=== PATIENT | male | born 1975 | race Caucasian/White ===

== ENCOUNTER 2017-01-04 12:37 | Inpatient (IN) | payer OTHER ==
[2017-01-04 17:11] VITALS: BMI 34.2
--- NOTE | 2017-01-04 18:49 | HP ---
COWS - Scale Resting Pulse: 0= [place] 80 or Below Sweatin= Chills/Flushing Restless Observation: 1= Difficult to Sit Still Pupil Size: 0= Normal to Room Light Bone or Joint Aches: 2= Severe Diffuse Aches Runny Nose/ Eye Tearin= Runny Nose/Eyes GI Upset > 30mins: 1= Stomach Cramp Tremor Observation: 2= Slight Tremor Visible Yawning Observation: 0= None Anxiety or Irritability: 2=Irritable/Anxious Goose Flesh Skin: 3=Piloerection COWS Score: 14 Admission ROS S - HPI Chief Complaint: WITHDRAWAL SX Allergies/Adverse Reactions: Allergies Allergy/AdvReac Type Severity Reaction Status Date / Time No Known Allergies Allergy Verified 01/04/17 17:41 History of Present Illness: 41 YEARS OLD MALE WITH LONG HISTORY OF OPIATE NICOTINE DEPENDENCE, HAS HYPERTENSION HYPERLIPIDEMIA DIABETES II GERD DEPRESSION S/P CARDIAC STENTS 2014 IS ADMITTED TO DETOX Exam Limitations: No Limitations - Ebola screening Have you traveled outside of the country in the last 21 days: No Have you had contact with anyone from an Ebola affected area: No Have you been sick,other than usual withdrawal symptoms: No Do you have a fever: No - Review of Systems Constitutional: Chills, Changes in sleep, Weight Stable EENT: reports: No Symptoms Reported Respiratory: reports: No Symptoms reported Cardiac: reports: No Symptoms Reported GI: reports: Nausea, Poor Fluid Intake, Indigestion, Abdominal cramping Musculoskeletal: reports: Back Pain Integumentary: reports: No Symptoms Reported Neuro: reports: Tremors Endocrine: reports: No Symptoms Reported Hematology: reports: No Symptoms Reported Psychiatric: reports: Judgement Intact, Orientated x3, Depressed Other Systems: Reviewed and Negative Patient History - Patient Medical History Hx Anemia: No Hx Asthma: No Hx Chronic Obstructive Pulmonary Disease (COPD): No Hx Cancer: No Hx Cardiac Disorders: No Hx Congestive Heart Failure: No Hx Hypertension: Yes Hx Hypercholesterolemia: Yes Hx Pacemaker: No HX Cerebrovascular Accident: No Hx Seizures: No Hx Dementia: No Hx Diabetes: Yes Hx Gastrointestinal Disorders: No Hx Liver Disease: No Hx Genitourinary Disorders: No Hx Sexually Transmitted Disorders: No Hx Renal Disease (ESRD): No Hx Thyroid Disease: No Hx Human Immunodeficiency Virus (HIV): No Hx Hepatitis C: No Hx Depression: Yes Hx Suicide Attempt: No Hx Bipolar Disorder: No Hx Schizophrenia: No - Patient Surgical History Past Surgical History: Yes Hx Neurologic Surgery: No Hx Cataract Extraction: No Hx Cardiac Surgery: Yes (2 stents 04/2015) Hx Lung Surgery: No Hx Breast Surgery: No Hx Breast Biopsy: No Hx Abdominal Surgery: No Hx Appendectomy: No Hx Cholecystectomy: No Hx Genitourinary Surgery: No Hx Orthopedic Surgery: No Anesthesia Reaction: No - PPD History Previous Implant?: Yes Documented Results: Negative w/o proof Implanted On Prior [facility] Admission?: No PPD to be Administered?: Yes - Smoking Cessation Smoking history: Current every day smoker Have you smoked in the past 12 months: Yes Aproximately how many cigarettes per day: 20 Cigars Per Day: 0 Hx Chewing Tobacco Use: No Initiated information on smoking cessation: Yes 'Breaking Loose' booklet given: 01/04/17 - Substance & Tx. History Hx Alcohol Use: No Hx Substance Use: Yes Substance Use Type: Opiates Hx Substance Use Treatment: Yes - Substances Abused Heroin Route: Inhalation Frequency: Daily Amount used: 7 bags Age of first use: 36 Date of Last Use: 01/03/17 Marijuana/Hashish Route: Smoking Frequency: 1-2 times per week Amount used: 1 joint Age of first use: 14 Date of Last Use: 01/03/17 Family Disease History - Family Disease History Family Disease History: Diabetes: Grandparent, Father, Mother, Heart Disease: Grandparent, Father, Mother Admission Physical Exam BHS - Vital Signs Vital Signs: Vital Signs - 24 hr 01/04/17 17:09 Temperature 97.4 F L Pulse Rate 77 Respiratory 18 Rate Blood Pressure 113/68 - Physical General Appearance: Yes: Appropriately Dressed, Mild Distress, Obese, Tremorous , Irritable, Sweating, Anxious HEENTM: Yes: Hearing grossly Normal, Normal ENT Inspection, Normocephalic, Normal Voice Respiratory: Yes: Chest Non-Tender, Lungs Clear, Normal Breath Sounds, No Respiratory Distress, No Accessory Muscle Use Neck: Yes: Trachea in good position Breast: Yes: Breasts Symetrical Cardiology: Yes: Regular Rhythm, Regular Rate, S1, S2 Abdominal: Yes: Non Tender, Soft Genitourinary: Yes: Within Normal Limits Back: Yes: Normal Inspection Musculoskeletal: Yes: full range of Motion, Gait Steady, Back pain Extremities: Yes: Normal Range of Motion, Non-Tender, Tremors Neurological: Yes: Fully Oriented, Alert, Motor Strength 5/5, Normal Response, Depressed Affect Integumentary: Yes: Warm Lymphatic: Yes: Within Normal Limits - Diagnostic (1) Opioid dependence with withdrawal Current Visit: Yes Status: Acute (2) Depression (emotion) Current Visit: Yes Status: Suspected Qualifiers: Depression Type: dysthymia Qualified Code(s): F34.1 - Dysthymic disorder (3) Hypertension Current Visit: Yes Status: Acute Qualifiers: Hypertension type: essential hypertension Qualified Code(s): I10 - Essential (primary) hypertension (4) Hypercholesterolemia Current Visit: Yes Status: Acute (5) Diabetes mellitus type II, controlled Current Visit: Yes Status: Acute Qualifiers: Diabetes mellitus complication status: without complication Diabetes mellitus adjunct faculty for medical terminology insulin use: without senior care use Qualified Code(s): E11.9 - Type 2 diabetes mellitus without complications (6) GERD (gastroesophageal reflux disease) Current Visit: Yes Status: Acute Qualifiers: Esophagitis presence: without esophagitis Qualified Code(s): K21.9 - Gastro-esophageal reflux disease without esophagitis (7) Nicotine dependence Current Visit: Yes Status: Acute Qualifiers: Nicotine product type: cigarettes Substance use status: in withdrawal Qualified Code(s): F17.213 - Nicotine dependence, cigarettes, with withdrawal (8) History of heart artery stent Current Visit: Yes Status: Resolved Cleared for Admission [facility] - Detox or Rehab [facility] Level of Care: Medically Managed Detox Regimen/Protocol: Methadone [facility] Breath Alcohol Content Breath Alcohol Content: 0 Urine Drug Screen - Results Drug Screen Negative: No Urine Drug Screen Results: THC-Marijuana, OPI-Opiates, MET-Methamphetamine, TCA- Tricyclic Antidepress, OXY-Oxycodone
[2017-01-04] MEDS ORDERED: MAGNESIUM CITRATE 300 ML BOTTLE PO PRN (18:50)
[2017-01-04] MEDS ORDERED: MAG HYDROX/AL HYDROX/SIMETH 30 ML UNIT-DOSE CUP PO PRN (18:50)
[2017-01-04] MEDS ORDERED: P-EPHED 60MG/TRIPROLIDI 2.5MG TABLET PO PRN (18:50)
[2017-01-04] MEDS ORDERED: LOPERAMIDE HCL 2 MG CAPSULE PO PRN (18:50)
[2017-01-04] MEDS ORDERED: MENTHOL/PHENOL 1 EACH UD MM PRN (18:50)
[2017-01-04] MEDS ORDERED: guaiFENesin/D-METHORPHAN HB 10 ML UNIT-DOSE CUPS PO PRN (18:50)
[2017-01-04] MEDS ORDERED: NICOTINE POLACRILEX 4 MG GUM BC PRN (18:50)
[2017-01-04] MEDS ORDERED: MAGNESIUM HYDROX 2400MG/30ML ORAL SUSPENSION 30 ML CUP PO PRN (18:50)
[2017-01-04] MEDS ORDERED: ACETAMINOPHEN 325 MG TABLET (FP) PO PRN (18:50)
[2017-01-04] MEDS ORDERED: METHADONE HCL 10 MG TABLET (FOR DETOX USE ONLY) PO ONE ×2 (19:15→23:00)
[2017-01-04] MEDS: diazePAM 5 MG TABLET PO PRN (20:29)
[2017-01-04] MEDS: ATORVASTATIN CA 40 MG TABLET (FP) PO SCH (22:15)
[2017-01-04] MEDS: RANITIDINE HCL 150 MG TABLET (FP) PO SCH (22:15)
[2017-01-04] MEDS: THIAMINE HCL 100 MG TABLET (FP) PO SCH (22:15)
[2017-01-04] MEDS: diphenhydrAMINE HCL 50 MG CAPSULE PO PRN (22:15)
[2017-01-04 23:10] LABS: URINE APPEARANCE CLEAR; URINE BILIRUBIN NEGATIVE (NEGATIVE); URINE BLOOD NEGATIVE (NEGATIVE); URINE COLOR YELLOW; URINE GLUCOSE (UA) NEGATIVE (NEGATIVE); URINE KETONE NEGATIVE (NEGATIVE); URINE LEUK ESTERASE NEGATIVE (NEGATIVE); URINE NITRITE NEGATIVE (NEGATIVE); URINE PROTEIN NEGATIVE (NEGATIVE); URINE UROBILINOGEN NEGATIVE E.U./dl (0.2-1.0)
[2017-01-05] MEDS: diazePAM 5 MG TABLET PO PRN ×2 (05:23→22:16)
[2017-01-05] MEDS: metFORMIN HCL 500 MG TABLET (FP) PO SCH ×2 (07:01→17:00)
[2017-01-05] MEDS ORDERED: METHADONE HCL 10 MG TABLET (FOR DETOX USE ONLY) PO ONE (10:00)
[2017-01-05] MEDS: amLODIPine BESYLATE 5 MG TABLET (FP) PO SCH (10:12)
[2017-01-05] MEDS: CARVEDILOL 12.5 MG TABLET (FP) PO SCH (10:12)
[2017-01-05] MEDS: RANITIDINE HCL 150 MG TABLET (FP) PO SCH ×2 (10:12→22:14)
[2017-01-05] MEDS: PRENATAL VITAMINS W/ FOLIC ACID TABLET (FP) PO SCH (10:12)
[2017-01-05] MEDS: NICOTINE 21 MG/24 HOURS TOPICAL PATCH TD SCH (10:12)
[2017-01-05] MEDS: ASPIRIN 81 MG CHEWABLE TABLETS PO SCH (10:12)
--- NOTE | 2017-01-05 10:28 | PN ---
BHS COWS - Scale Resting Pulse: 0= [place] 80 or Below Sweatin= Chills/Flushing Restless Observation: 3= Extraneous Movement Pupil Size: 2= Moderately Dilated Bone or Joint Aches: 4=Acute Joint/Muscle Pain Runny Nose/ Eye Tearin= Nasal Congestion GI Upset > 30mins: 1= Stomach Cramp Tremor Observation of Outstretched Hands: 2= Slight Tremor Visible Yawning Observation: 1= 1-2x During Session Anxiety or Irritability: 2=Irritable/Anxious Goose Flesh Skin: 0=Smooth Skin COWS Score: 17 BHS Progress Note (SOAP) Subjective: ANXIETY,TREMORS,SWEATS,MUSCLE ACHES. Objective: 01/05/17 10:28 Vital Signs Temperature 95.3 F L 01/05/17 10:01 Pulse Rate 73 01/05/17 10:01 Respiratory Rate 18 01/05/17 10:01 Blood Pressure 146/97 01/05/17 10:01 O2 Sat by Pulse Oximetry (%) Laboratory Last Values POC Glucometer 122 UNITS (()) 01/05/17 05:22 Urine Color Yellow 01/04/17 22:50 Urine Appearance Clear 01/04/17 22:50 Urine pH 5.0 (5.0-8.0) 01/04/17 22:50 Ur Specific [place] 1.021 (1.001-1.035) 01/04/17 22:50 Urine Protein Negative (NEGATIVE) 01/04/17 22:50 Urine Glucose (UA) Negative (NEGATIVE) 01/04/17 22:50 Urine Ketones Negative (NEGATIVE) 01/04/17 22:50 Urine Blood Negative (NEGATIVE) 01/04/17 22:50 Urine Nitrite Negative (NEGATIVE) 01/04/17 22:50 Urine Bilirubin Negative (NEGATIVE) 01/04/17 22:50 Urine Urobilinogen Negative E.U./dl (0.2-1.0) 01/04/17 22:50 Ur Leukocyte Esterase Negative (NEGATIVE) 01/04/17 22:50 Assessment: 01/05/17 10:28 WITHDRAWAL SX Plan: CONTINUE DETOX
[2017-01-05 10:39] LABS: ALBUMIN 3.5 g/dl (3.4-5.0); ANION GAP 8 (8-16); BILIRUBIN,TOTAL 0.5 mg/dL (0.2-1.0); CALCIUM 8.9 mg/dL (8.5-10.1); CO2 29 mmol/L (21-32); CREATININE 0.8 mg/dL (0.7-1.3); GLUCOSE,RANDOM 98 mg/dL (74-106); SGOT/AST 13 U/L (15-37); SGPT/ALT 18 U/L (12-78); TOT PROT 6.3 g/dl (6.4-8.2)
[2017-01-05 10:40] LABS: ALK PHOS 96 U/L (45-117)
[2017-01-05 10:41] LABS: MCH 31.6 pg (25.7-33.7); MCHC 33.7 g/dl (32.0-35.9); MEAN CELL VOLUME 93.7 fl (80-96); MEAN PLT VOLUME 7.4 fl (7.5-11.1); PLATELET COUNT 301 K/MM3 (134-434); RDW 14.2 % (11.9-15.9)
--- NOTE | 2017-01-05 11:07 | EKG ---
Test Reason : Blood Pressure : / mmHG Vent. Rate : 075 BPM Atrial Rate : 075 BPM P-R Int : 158 ms QRS Dur : 098 ms QT Int : 388 ms P-R-T Axes : 016 077 013 degrees QTc Int : 433 ms NORMAL SINUS RHYTHM NORMAL ECG NO PREVIOUS ECGS AVAILABLE Confirmed by MATHEW WARREN MD ([id number]) on 01/05/2017 11:06:35 AM Referred By: Nathanael Celis Confirmed By:MATHEW WARREN MD
--- NOTE | 2017-01-05 11:54 | CONSULT ---
[facility] Psychiatric Consult - Data Date of interview: 01/05/17 Admission source: [facility] Identifying data: First admission to [facility] for this 41 y/o male seeking detox treatment on for heroin and marijuana dependence.Patient is a without children,domiciled (3/4 housing),unemployed and supported on welfare. Substance Abuse History: - Smoking Cessation. Smoking history: Current every day smoker. Have you smoked in the past 12 months: Yes. Aproximately how many cigarettes per day: 20. Cigars Per Day: 0. Hx Chewing Tobacco Use: No. Initiated information on smoking cessation: Yes. 'Breaking Loose' booklet given : 01/04/17. - Substance & Tx. History. Hx Alcohol Use: No. Hx Substance Use: Yes. Substance Use Type: Opiates. Hx Substance Use Treatment: Yes. - Substances Abused. Heroin. Route: Inhalation. Frequency: Daily. Amount used: 7 bags. Age of first use: 36. Date of Last Use: 01/03/17. Marijuana/ Hashish. Route: Smoking. Frequency: 1-2 times per week. Amount used: 1 joint. Age of first use: 14. Date of Last Use: 01/03/17. Confirmed by the patient in this session. Medical History: Hypertension,diabetes mellitus,hypercholesterolemia,two cardiac stents and obesity. Psychiatric History: Patient denies history of spychiatric hospitalizations.He is curently seeing a private psychiatrist in [place] to address depression and anxiety.Mr Moya is managed on a regimen of seroquel 100 mg/hs + klonopin 2 mg/day + zoloft 100 mg/day.No history of suicide attempts. Physical/Sexual Abuse/Trauma History: Patient denies history of sexual abuse.Traumatized by the of his in 2012 (cirrhosis of liver). Additional Comment: Urine Drug Screen Results: THC-Marijuana, OPI-Opiates, MET- Methamphetamine, TCA-Tricyclic Antidepress, OXY-Oxycodone.Noted. Mental Status Exam - Mental Status Exam Alert and Oriented to: Time, Place, Person Cognitive Function: Good Patient Appearance: Well Groomed Mood: Sad, Nervous, Anxious, Apprehensive Affect: Mood Congruent Patient Behavior: Appropriate, Cooperative Speech Pattern: Clear Voice Loudness: Normal Thought Process: Goal Oriented Thought Disorder: Not Present Hallucinations: Denies Suicidal Ideation: Denies Homicidal Ideation: Denies Insight/Judgement: Fair Sleep: Poorly, Difficulty falling asleep Appetite: Good Muscle strength/Tone: Normal Gait/Station: Normal Psychiatric Findings - Problem List ([place] 1, 2,3) (1) Opioid dependence with withdrawal Current Visit: Yes Status: Acute (2) Marijuana dependence Current Visit: Yes Status: Acute (3) Nicotine dependence Current Visit: Yes Status: Acute Qualifiers: Nicotine product type: cigarettes Substance use status: in withdrawal Qualified Code(s): F17.213 - Nicotine dependence, cigarettes, with withdrawal (4) Substance induced mood disorder Current Visit: Yes Status: Acute (5) Depressive disorder Current Visit: Yes Status: Chronic (6) Diabetes mellitus type II, controlled Current Visit: Yes Status: Chronic Qualifiers: Diabetes mellitus complication status: without complication 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 Qualified Code(s): E11.9 - Type 2 diabetes mellitus without complications (7) GERD (gastroesophageal reflux disease) Current Visit: Yes Status: Chronic Qualifiers: Esophagitis presence: without esophagitis Qualified Code(s): K21.9 - Gastro-esophageal reflux disease without esophagitis (8) Hypercholesterolemia Current Visit: Yes Status: Chronic (9) Hypertension Current Visit: Yes Status: Chronic Qualifiers: Hypertension type: essential hypertension Qualified Code(s): I10 - Essential (primary) hypertension (10) History of heart artery stent Current Visit: Yes Status: Resolved - Initial Treatment Plan Initial Treatment Plan: Psychoeducation.Detoxification in progress.Medications : zoloft 1000 mg po daily + seroquel 100 mg po hs .Side effects/benefits discussed with the patient.He agrees with this careplan.Observation.
[2017-01-05] MEDS ORDERED: SERTRALINE HCL 50 MG TABLET (FP) PO SCH (12:30)
[2017-01-05] MEDS: QUEtiapine FUMARATE 100 MG TABLET (FP) PO SCH (22:14)
[2017-01-05] MEDS: ATORVASTATIN CA 40 MG TABLET (FP) PO SCH (22:14)
[2017-01-05] MEDS: THIAMINE HCL 100 MG TABLET (FP) PO SCH (22:14)
[2017-01-06] MEDS: diazePAM 5 MG TABLET PO PRN ×4 (05:40→22:16)
[2017-01-06] MEDS: metFORMIN HCL 500 MG TABLET (FP) PO SCH ×2 (06:45→17:18)
[2017-01-06] MEDS ORDERED: METHADONE HCL 5 MG TABLET (FOR DETOX USE ONLY) PO ONE (10:00)
[2017-01-06] MEDS: amLODIPine BESYLATE 5 MG TABLET (FP) PO SCH (10:11)
[2017-01-06] MEDS: PRENATAL VITAMINS W/ FOLIC ACID TABLET (FP) PO SCH (10:11)
[2017-01-06] MEDS: SERTRALINE HCL 50 MG TABLET (FP) PO SCH (10:11)
[2017-01-06] MEDS: NICOTINE 21 MG/24 HOURS TOPICAL PATCH TD SCH (10:11)
[2017-01-06] MEDS: ASPIRIN 81 MG CHEWABLE TABLETS PO SCH (10:11)
[2017-01-06] MEDS: CARVEDILOL 12.5 MG TABLET (FP) PO SCH (10:11)
[2017-01-06] MEDS: RANITIDINE HCL 150 MG TABLET (FP) PO SCH ×2 (10:11→22:14)
--- NOTE | 2017-01-06 11:41 | PN ---
S COWS - Scale Resting Pulse: 0= [place] 80 or Below Sweatin= Chills/Flushing Restless Observation: 3= Extraneous Movement Pupil Size: 2= Moderately Dilated Bone or Joint Aches: 4=Acute Joint/Muscle Pain Runny Nose/ Eye Tearin= Nasal Congestion GI Upset > 30mins: 1= Stomach Cramp Tremor Observation of Outstretched Hands: 1= Tremor [place], Not Seen Yawning Observation: 1= 1-2x During Session Anxiety or Irritability: 2=Irritable/Anxious Goose Flesh Skin: 0=Smooth Skin COWS Score: 16 S Progress Note (SOAP) Subjective: ANXIETY,SWEATS,BACK PAIN. Objective: 01/06/17 11:40 Vital Signs Temperature 95.6 F L 01/06/17 09:51 Pulse Rate 73 01/06/17 09:51 Respiratory Rate 18 01/06/17 09:51 Blood Pressure 149/95 01/06/17 09:51 O2 Sat by Pulse Oximetry (%) Laboratory Last Values WBC 8.0 K/mm3 (4.0-10.0) 01/05/17 07:00 RBC 4.49 M/mm3 (4.00-5.60) 01/05/17 07:00 Hgb 14.2 GM/dL (11.7-16.9) 01/05/17 07:00 Hct 42.1 % (35.4-49) 01/05/17 07:00 MCV 93.7 fl (80-96) 01/05/17 07:00 MCHC 33.7 g/dl (32.0-35.9) 01/05/17 07:00 RDW 14.2 % (11.9-15.9) 01/05/17 07:00 Plt Count 301 K/MM3 (134-434) 01/05/17 07:00 MPV 7.4 fl (7.5-11.1) L 01/05/17 07:00 Sodium 143 mmol/L (136-145) 01/05/17 07:00 Potassium 4.3 mmol/L (3.5-5.1) 01/05/17 07:00 Chloride 106 mmol/L (98-107) 01/05/17 07:00 Carbon Dioxide 29 mmol/L (21-32) 01/05/17 07:00 Anion Gap 8 (8-16) 01/05/17 07:00 BUN 17 mg/dL (7-18) 01/05/17 07:00 Creatinine 0.8 mg/dL (0.7-1.3) 01/05/17 07:00 Creat Clearance w eGFR > 60 (>60) 01/05/17 07:00 POC Glucometer 94 UNITS (()) 01/05/17 16:19 Random Glucose 98 mg/dL (74-106) 01/05/17 07:00 Calcium 8.9 mg/dL (8.5-10.1) 01/05/17 07:00 Total Bilirubin 0.5 mg/dL (0.2-1.0) 01/05/17 07:00 AST 13 U/L (15-37) L 01/05/17 07:00 ALT 18 U/L (12-78) 01/05/17 07:00 Alkaline Phosphatase 96 U/L (45-117) 01/05/17 07:00 Total Protein 6.3 g/dl (6.4-8.2) L 01/05/17 07:00 Albumin 3.5 g/dl (3.4-5.0) 01/05/17 07:00 Urine Color Yellow 01/04/17 22:50 Urine Appearance Clear 01/04/17 22:50 Urine pH 5.0 (5.0-8.0) 01/04/17 22:50 Ur Specific [place] 1.021 (1.001-1.035) 01/04/17 22:50 Urine Protein Negative (NEGATIVE) 01/04/17 22:50 Urine Glucose (UA) Negative (NEGATIVE) 01/04/17 22:50 Urine Ketones Negative (NEGATIVE) 01/04/17 22:50 Urine Blood Negative (NEGATIVE) 01/04/17 22:50 Urine Nitrite Negative (NEGATIVE) 01/04/17 22:50 Urine Bilirubin Negative (NEGATIVE) 01/04/17 22:50 Urine Urobilinogen Negative E.U./dl (0.2-1.0) 01/04/17 22:50 Ur Leukocyte Esterase Negative (NEGATIVE) 01/04/17 22:50 RPR Titer Nonreactive (NONREACTIVE) 01/05/17 07:00 Hepatitis C Antibody <0.1 s/co ratio (0.0-0.9) 01/04/17 07:00 Assessment: 01/06/17 11:40 WITHDRAWAL SX Plan: CONTINUE DETOX MOTRIN PRN LIDOCAINE PATCH DIRECTED
[2017-01-06] MEDS: LIDOCAINE 5% TOPICAL PATCH TP SCH (13:31)
[2017-01-06] MEDS: THIAMINE HCL 100 MG TABLET (FP) PO SCH (22:14)
[2017-01-06] MEDS: ATORVASTATIN CA 40 MG TABLET (FP) PO SCH (22:14)
[2017-01-06] MEDS: QUEtiapine FUMARATE 100 MG TABLET (FP) PO SCH (22:14)
[2017-01-07] MEDS: diazePAM 5 MG TABLET PO PRN ×3 (05:44→17:29)
[2017-01-07] MEDS: metFORMIN HCL 500 MG TABLET (FP) PO SCH ×2 (07:42→17:29)
[2017-01-07] MEDS ORDERED: METHADONE HCL 5 MG TABLET (FOR DETOX USE ONLY) PO ONE (10:00)
[2017-01-07] MEDS: PRENATAL VITAMINS W/ FOLIC ACID TABLET (FP) PO SCH (10:14)
[2017-01-07] MEDS: amLODIPine BESYLATE 5 MG TABLET (FP) PO SCH (10:14)
[2017-01-07] MEDS: CARVEDILOL 12.5 MG TABLET (FP) PO SCH (10:14)
[2017-01-07] MEDS: ASPIRIN 81 MG CHEWABLE TABLETS PO SCH (10:14)
[2017-01-07] MEDS: SERTRALINE HCL 50 MG TABLET (FP) PO SCH (10:14)
[2017-01-07] MEDS: RANITIDINE HCL 150 MG TABLET (FP) PO SCH ×2 (10:14→22:17)
[2017-01-07] MEDS: LIDOCAINE 5% TOPICAL PATCH TP SCH (10:15)
[2017-01-07] MEDS: NICOTINE 21 MG/24 HOURS TOPICAL PATCH TD SCH (10:15)
--- NOTE | 2017-01-07 10:16 | PN ---
BHS Progress Note (SOAP) Subjective: ANXIETY,SWEATS. Objective: 01/07/17 10:15 Vital Signs Temperature 96.1 F L 01/07/17 09:43 Pulse Rate 77 01/07/17 09:43 Respiratory Rate 18 01/07/17 09:43 Blood Pressure 147/95 01/07/17 09:43 O2 Sat by Pulse Oximetry (%) Assessment: 01/07/17 10:15 WITHDRAWAL SX Plan: CONTINUE DETOX
[2017-01-07] MEDS: THIAMINE HCL 100 MG TABLET (FP) PO SCH (22:17)
[2017-01-07] MEDS: ATORVASTATIN CA 40 MG TABLET (FP) PO SCH (22:17)
[2017-01-07] MEDS: QUEtiapine FUMARATE 100 MG TABLET (FP) PO SCH (22:17)
[2017-01-08] MEDS: metFORMIN HCL 500 MG TABLET (FP) PO SCH ×2 (06:55→16:30)
[2017-01-08] MEDS ORDERED: METHADONE HCL 10 MG TABLET (FOR DETOX USE ONLY) PO ONE (10:00)
[2017-01-08] MEDS: NICOTINE 21 MG/24 HOURS TOPICAL PATCH TD SCH (10:23)
[2017-01-08] MEDS: SERTRALINE HCL 50 MG TABLET (FP) PO SCH (10:24)
[2017-01-08] MEDS: CARVEDILOL 12.5 MG TABLET (FP) PO SCH (10:24)
[2017-01-08] MEDS: RANITIDINE HCL 150 MG TABLET (FP) PO SCH ×2 (10:24→22:22)
[2017-01-08] MEDS: amLODIPine BESYLATE 5 MG TABLET (FP) PO SCH (10:24)
[2017-01-08] MEDS: PRENATAL VITAMINS W/ FOLIC ACID TABLET (FP) PO SCH (10:24)
[2017-01-08] MEDS: ASPIRIN 81 MG CHEWABLE TABLETS PO SCH (10:24)
[2017-01-08] MEDS: LIDOCAINE 5% TOPICAL PATCH TP SCH (10:26)
--- NOTE | 2017-01-08 10:31 | PN ---
S Progress Note (SOAP) Subjective: Anxiety,tremors,sweating,interrupted sleep,restless Objective: 01/08/17 10:30 Vital Signs - 8 hr 01/08/17 01/08/17 01/08/17 03:30 06:46 09:45 Temperature 96.1 F L 95.7 F L Pulse Rate 72 73 Respiratory 18 16 20 Rate Blood Pressure 122/82 135/90 Laboratory Last Values WBC 8.0 K/mm3 (4.0-10.0) 01/05/17 07:00 RBC 4.49 M/mm3 (4.00-5.60) 01/05/17 07:00 Hgb 14.2 GM/dL (11.7-16.9) 01/05/17 07:00 Hct 42.1 % (35.4-49) 01/05/17 07:00 MCV 93.7 fl (80-96) 01/05/17 07:00 MCHC 33.7 g/dl (32.0-35.9) 01/05/17 07:00 RDW 14.2 % (11.9-15.9) 01/05/17 07:00 Plt Count 301 K/MM3 (134-434) 01/05/17 07:00 MPV 7.4 fl (7.5-11.1) L 01/05/17 07:00 Sodium 143 mmol/L (136-145) 01/05/17 07:00 Potassium 4.3 mmol/L (3.5-5.1) 01/05/17 07:00 Chloride 106 mmol/L (98-107) 01/05/17 07:00 Carbon Dioxide 29 mmol/L (21-32) 01/05/17 07:00 Anion Gap 8 (8-16) 01/05/17 07:00 BUN 17 mg/dL (7-18) 01/05/17 07:00 Creatinine 0.8 mg/dL (0.7-1.3) 01/05/17 07:00 Creat Clearance w eGFR > 60 (>60) 01/05/17 07:00 POC Glucometer 110 UNITS (()) 01/08/17 05:35 Random Glucose 98 mg/dL (74-106) 01/05/17 07:00 Calcium 8.9 mg/dL (8.5-10.1) 01/05/17 07:00 Total Bilirubin 0.5 mg/dL (0.2-1.0) 01/05/17 07:00 AST 13 U/L (15-37) L 01/05/17 07:00 ALT 18 U/L (12-78) 01/05/17 07:00 Alkaline Phosphatase 96 U/L (45-117) 01/05/17 07:00 Total Protein 6.3 g/dl (6.4-8.2) L 01/05/17 07:00 Albumin 3.5 g/dl (3.4-5.0) 01/05/17 07:00 Urine Color Yellow 01/04/17 22:50 Urine Appearance Clear 01/04/17 22:50 Urine pH 5.0 (5.0-8.0) 01/04/17 22:50 Ur Specific [place] 1.021 (1.001-1.035) 01/04/17 22:50 Urine Protein Negative (NEGATIVE) 01/04/17 22:50 Urine Glucose (UA) Negative (NEGATIVE) 01/04/17 22:50 Urine Ketones Negative (NEGATIVE) 01/04/17 22:50 Urine Blood Negative (NEGATIVE) 01/04/17 22:50 Urine Nitrite Negative (NEGATIVE) 01/04/17 22:50 Urine Bilirubin Negative (NEGATIVE) 01/04/17 22:50 Urine Urobilinogen Negative E.U./dl (0.2-1.0) 01/04/17 22:50 Ur Leukocyte Esterase Negative (NEGATIVE) 01/04/17 22:50 RPR Titer Nonreactive (NONREACTIVE) 01/05/17 07:00 Hepatitis C Antibody <0.1 s/co ratio (0.0-0.9) 01/04/17 07:00 labs noted Assessment: 01/08/17 10:31 Withdrawal sx. Plan: Continue detox
[2017-01-08] MEDS: ATORVASTATIN CA 40 MG TABLET (FP) PO SCH (22:22)
[2017-01-08] MEDS: THIAMINE HCL 100 MG TABLET (FP) PO SCH (22:22)
[2017-01-08] MEDS: QUEtiapine FUMARATE 100 MG TABLET (FP) PO SCH (22:22)
[2017-01-08] MEDS: diphenhydrAMINE HCL 50 MG CAPSULE PO PRN (22:23)
[2017-01-09] MEDS ORDERED: METHADONE HCL 5 MG TABLET (FOR DETOX USE ONLY) PO ONE (06:00)
[2017-01-09 07:03] VITALS: BP 118/85; PULSE 69; TEMP 97
[2017-01-09] MEDS: metFORMIN HCL 500 MG TABLET (FP) PO SCH (07:31)
--- NOTE | 2017-01-09 10:37 | DS ---
[facility] Detox Discharge Summary Admission Date: 01/04/17 Discharge Date: 01/09/17 - History Present History: Opioid Dependence Pertinent Past History: Hypertension Diabetes II CAD Smoker GERD Hyperlipidemia - Physical Exam Results Vital Signs: Vital Signs Temperature 97.0 F L 01/09/17 07:02 Pulse Rate 69 01/09/17 07:02 Respiratory Rate 16 01/09/17 07:02 Blood Pressure 118/85 01/09/17 07:02 O2 Sat by Pulse Oximetry (%) Laboratory Tests 01/04/17 01/04/17 01/04/17 07:00 18:47 22:50 WBC RBC Hgb Hct MCV MCHC RDW Plt Count MPV Sodium Potassium Chloride Carbon Dioxide Anion Gap BUN Creatinine Creat Clearance w eGFR POC Glucometer 92 Random Glucose Calcium Total Bilirubin AST ALT Alkaline Phosphatase Total Protein Albumin Urine Color Yellow Urine Appearance Clear Urine pH 5.0 Ur Specific [place] 1.021 Urine Protein Negative Urine Glucose (UA) Negative Urine Ketones Negative Urine Blood Negative Urine Nitrite Negative Urine Bilirubin Negative Urine Urobilinogen Negative Ur Leukocyte Esterase Negative RPR Titer Hepatitis C Antibody <0.1 01/05/17 01/05/17 01/05/17 05:22 07:00 07:00 WBC 8.0 RBC 4.49 Hgb 14.2 Hct 42.1 MCV 93.7 MCHC 33.7 RDW 14.2 Plt Count 301 MPV 7.4 L Sodium 143 Potassium 4.3 Chloride 106 Carbon Dioxide 29 Anion Gap 8 BUN 17 Creatinine 0.8 Creat Clearance w eGFR > 60 POC Glucometer 122 Random Glucose 98 Calcium 8.9 Total Bilirubin 0.5 AST 13 L ALT 18 Alkaline Phosphatase 96 Total Protein 6.3 L Albumin 3.5 Urine Color Urine Appearance Urine pH Ur Specific [place] Urine Protein Urine Glucose (UA) Urine Ketones Urine Blood Urine Nitrite Urine Bilirubin Urine Urobilinogen Ur Leukocyte Esterase RPR Titer Hepatitis C Antibody 01/05/17 01/05/17 01/06/17 07:00 16:19 06:43 WBC RBC Hgb Hct MCV MCHC RDW Plt Count MPV Sodium Potassium Chloride Carbon Dioxide Anion Gap BUN Creatinine Creat Clearance w eGFR POC Glucometer 94 110 Random Glucose Calcium Total Bilirubin AST ALT Alkaline Phosphatase Total Protein Albumin Urine Color Urine Appearance Urine pH Ur Specific [place] Urine Protein Urine Glucose (UA) Urine Ketones Urine Blood Urine Nitrite Urine Bilirubin Urine Urobilinogen Ur Leukocyte Esterase RPR Titer Nonreactive Hepatitis C Antibody 03/08/17 03/09/17 03/09/17 16:29 05:46 16:13 WBC RBC Hgb Hct MCV MCHC RDW Plt Count MPV Sodium Potassium Chloride Carbon Dioxide Anion Gap BUN Creatinine Creat Clearance w eGFR POC Glucometer 122 108 98 Random Glucose Calcium Total Bilirubin AST ALT Alkaline Phosphatase Total Protein Albumin Urine Color Urine Appearance Urine pH Ur Specific [place] Urine Protein Urine Glucose (UA) Urine Ketones Urine Blood Urine Nitrite Urine Bilirubin Urine Urobilinogen Ur Leukocyte Esterase RPR Titer Hepatitis C Antibody 01/08/17 01/08/17 01/09/17 05:35 16:18 05:23 WBC RBC Hgb Hct MCV MCHC RDW Plt Count MPV Sodium Potassium Chloride Carbon Dioxide Anion Gap BUN Creatinine Creat Clearance w eGFR POC Glucometer 110 126 90 Random Glucose Calcium Total Bilirubin AST ALT Alkaline Phosphatase Total Protein Albumin Urine Color Urine Appearance Urine pH Ur Specific [place] Urine Protein Urine Glucose (UA) Urine Ketones Urine Blood Urine Nitrite Urine Bilirubin Urine Urobilinogen Ur Leukocyte Esterase RPR Titer Hepatitis C Antibody labs noted Pertinent Admission Physical Exam Findings: Withdrawal Symptoms - Treatment Hospital Course: Detox Protocol Followed, Detoxed Safely, Responded well, Discharged Condition Good - Medication Discharge Medications: Ambulatory Orders Amlodipine Besylate [Norvasc -] 5 mg PO DAILY 01/04/17 Aspirin [Aspirin EC] 81 mg PO DAILY 01/04/17 Atorvastatin Ca [Lipitor] 40 mg PO HS 01/04/17 Carvedilol [Coreg -] 12.5 mg PO BID 01/04/17 Clonazepam [Klonopin] 1 mg PO BID 01/04/17 Lisinopril [Prinivil] 20 mg PO DAILY 01/04/17 Metformin HCl [Glucophage] 500 mg PO TID 01/04/17 Mirtazapine [Remeron -] 30 mg PO HS 01/04/17 Quetiapine Fumarate [Seroquel] 100 mg PO HS 01/04/17 Ranitidine [Zantac -] 150 mg PO BID 01/04/17 Sertraline HCl [Zoloft -] 100 mg PO DAILY 01/04/17 Quetiapine Fumarate [Seroquel] 100 mg PO HS #30 tablet 01/09/17 Sertraline HCl [Zoloft -] 100 mg PO DAILY #30 tablet 01/09/17 - Diagnosis (1) Marijuana dependence Status: Acute (2) Nicotine dependence Status: Acute Qualifiers: Nicotine product type: cigarettes Substance use status: in withdrawal Qualified Code(s): F17.213 - Nicotine dependence, cigarettes, with withdrawal (3) Opioid dependence with withdrawal Status: Acute (4) Substance induced mood disorder Status: Acute (5) Depressive disorder Status: Chronic (6) Diabetes mellitus type II, controlled Status: Chronic Qualifiers: Diabetes mellitus complication status: without complication Diabetes mellitus care home insulin use: without roasterman use Qualified Code(s): E11.9 - Type 2 diabetes mellitus without complications (7) GERD (gastroesophageal reflux disease) Status: Chronic Qualifiers: Esophagitis presence: without esophagitis Qualified Code(s): K21.9 - Gastro-esophageal reflux disease without esophagitis (8) Hypercholesterolemia Status: Chronic (9) Hypertension Status: Chronic Qualifiers: Hypertension type: essential hypertension Qualified Code(s): I10 - Essential (primary) hypertension (10) Depression (emotion) Status: Suspected Qualifiers: Depression Type: dysthymia Qualified Code(s): F34.1 - Dysthymic disorder - AMA Did Patient Leave Against Medical Advice: No
== END 2017-01-09 09:00 | disposition home or self-care (01) | DRG 773 ==
LOC: YASAS 12:37 → Y3N 18:22
PROVIDERS: ADMIT Internal Medicine; ATTEND Internal Medicine
PROC: HZ2ZZZZ Detoxification Services for Substance Abuse Treatment (ICD-10-PCS; principal; 2017-01-09)
DX: F11.23 Opioid dependence with withdrawal (principal); F12.20 Cannabis dependence, uncomplicated; F17.213 Nicotine dependence, cigarettes, with withdrawal; F19.24 Other psychoactive substance dependence with psychoactive substance-induced mood disorder; F34.1 Dysthymic disorder; I10 Essential (primary) hypertension; E11.9 Type 2 diabetes mellitus without complications; Z79.84 Long term (current) use of oral hypoglycemic drugs; E78.00 Pure hypercholesterolemia, unspecified; K21.9 Gastro-esophageal reflux disease without esophagitis; Z95.5 Presence of coronary angioplasty implant and graft
CPT/HCPCS: 36415; 80053; 81003; 85027; 86593; 93005; 93010